=== PATIENT | female | born 1950 | race Caucasian/White ===

== ENCOUNTER 2017-07-29 06:54 | Day surgery (SDC) | payer OTHER ==
[2017-07-25 12:29] VITALS: BMI 35.0
[~2017-07-29] VITALS: Ht 160 cm; Wt 90.9 kg
[~2017-07-29 06:54] MED LIST: CLINDAMYCIN 600 MG/54 ML D5W IV SCH; DTR/5 PO; LACTATED RINGER'S 1000ML 1,000 ML IV SCH; MULT-506 PO; TOPI100T20 PO
[2017-07-29] MEDS ORDERED: FENTANYL CITRATE INJ 50 MCG/1 ML 2 ML VIAL IV PRN (07:30)
[2017-07-29] MEDS ORDERED: EpHEDrine SULFATE INJ 50 MG/ML AMP IV PRN (07:30)
[2017-07-29] MEDS ORDERED: ATROPINE SULFATE 0.1 MG/ML 5ML SYR IV PRN (07:30)
[2017-07-29] MEDS ORDERED: ONDANSETRON INJ 2 MG/ML 2 ML VIAL IV PRN ×2 (07:30→09:30)
[2017-07-29] MEDS ORDERED: HYDROmorphone INJ 1 MG/ML SYR IV PRN (07:30)
[2017-07-29 07:31] VITALS: BP 137/76; PULSE 86; TEMP 37; O2SAT 93; Ht 160 cm; Wt 90.9 kg
[2017-07-29] MEDS ORDERED: PROPOFOL IV EMULSION 10 MG/ML 20 ML VIAL IV ONE (07:39)
[2017-07-29] MEDS ORDERED: ROCURONIUM BROMIDE 10 MG/ML 5 ML VIAL IV ONE (07:39)
[2017-07-29] MEDS ORDERED: FENTANYL CITRATE INJ 50 MCG/1 ML 2 ML VIAL ONE ×2 (07:39→08:36)
[2017-07-29] MEDS ORDERED: MIDAZOLAM HCL 1 MG/ML 2ML VIAL ONE (07:39)
[2017-07-29] MEDS ORDERED: LIDOCAINE HCL 2% 2 ML VIAL (20MG/ML) ONE (07:39)
[2017-07-29] MEDS ORDERED: LIDOCAINE HCL 1% 20 ML VIAL ONE (08:09)
[2017-07-29] MEDS ORDERED: BUPIVACAINE 0.5 % 5 MG/1 ML MPF 30ML VIAL ONE (08:09)
[2017-07-29] MEDS ORDERED: BACITRACIN OINT 15 GM TUBE ONE (08:09)
[2017-07-29] MEDS ORDERED: CLINDAMYCIN IV 600 MG in DEXTROSE 5% 50ML 50 ML IV ONE (08:15)
--- NOTE | 2017-07-29 08:15 | History & Physical Bridge Note ---
H&P Re-Evaluation Bridge Note: I have examined the patient, reviewed the History & Physical and in the interval since the performance of the History & Physical I have noted the following changes of clinical significance: No changes noted
[2017-07-29] MEDS ORDERED: DEXAMETHASONE SOD INJ 4 MG/ML VIAL ONE (08:35)
[2017-07-29] MEDS ORDERED: ONDANSETRON INJ 2 MG/ML 2 ML VIAL ONE (08:35)
[2017-07-29] MEDS ORDERED: PHENYLEPHRINE 100MCG/ML 5ML SYR ONE (08:49)
[2017-07-29] MEDS ORDERED: EpHEDrine SULFATE 50MG/5ML SYR ONE (08:49)
[2017-07-29] MEDS ORDERED: SUCCINYLCHOLINE CHLORIDE 20 MG/ML 10 ML VIAL IV ONE (08:49)
[2017-07-29] MEDS ORDERED: PHENYLEPHRINE HCL INJ 10 MG/ML VIAL ONE (08:49)
--- NOTE | 2017-07-29 09:11 | [facility] Post Operative Brief Note ---
Immediate Operative Summary Operative Date Jul 29, 2017. Pre-Operative Diagnosis Ventral Hernia Post-Operative Diagnosis Ventral Hernia Procedure(s) Performed open repair ventral hernia with mesh Surgeon Dr. Torres Cook Boat Surgeon(s) Yvonne Kerr PA-C Estimated Blood Loss 5 ml Findings Consistent with Post-Op Diagnosis Fluids (cc crystalloids) 1100ml Specimens none Drains None Anesthesia Type General Complication(s) none Disposition Accompanied Pt To Recover: yes Disposition: Recovery Room / PACU
[2017-07-29] MEDS ORDERED: OXYC-57 PO (09:29)
[2017-07-29] MEDS ORDERED: MoRPHine SULFATE 4 MG/ML 1 ML CARP\\VIAL IV PRN (09:30)
[2017-07-29] MEDS ORDERED: OXYCODONE/ACETAMINOPHEN 5-325 TAB PO PRN ×2 (09:30)
[2017-07-29] MEDS ORDERED: ACETAMINOPHEN 325 MG TAB PO PRN (09:30)
[2017-07-29] MEDS ORDERED: MoRPHine SULFATE 2 MG/ML CARP IV PRN ×2 (09:30)
--- NOTE | 2017-07-29 09:34 | Discharge Instructions ---
Discharge Instructions Date of Service Jul 29, 2017. Admission Reason for Admission: Ventral Hernia Discharge Discharge Diagnosis / Problem: same Discharge Goals Goal(s): Decrease discomfort, Improve function Activity Recommendations Activity Limitations: as noted below No heavy lifting over 10 pounds for 4-6 weeks No strenuous activity until cleared by surgeon No submerging incisions underwater for 2 weeks (no bathing, swimming, or hot tubs) No driving while taking narcotic pain medication or until you are pain free . Instructions / Follow-Up Instructions / Follow-Up You may shower in 4 days, and then remove outer dressing. Sponge bath and wash hair in meantime. You have surgical christina that will be removed in surgical office Please cover daily with gauze Wear abdominal binder daily for support and compression. You may take this off at bedtime. You will be given Narcotic pain medication (Percocet) as needed for moderate to severe pain. You may take Tylenol/Ibuprofen as needed for mild pain. This medication may make you drowsy. Take as directed. Follow-up in surgical office in 1-2 weeks as scheduled , please call office at [phone] if you do not already have an appointment made. Current Hospital Diet Patient's current hospital diet: Discharge Diet Recommended Diet: Regular Diet Procedures Procedures Performed: Open Repair Ventral Hernia with Insertion of Mesh Pending Studies Studies pending at discharge: no Medical Emergencies . Who to Call and When: Medical Emergencies: If at any time you feel your situation is an emergency, please call 911 immediately. . Non-Emergent Contact Non-Emergency issues call your: Primary Care Provider, Surgeon Call Non-Emergent contact if: you have a fever, temperature is above 101, your pain is not controlled, your pain is worsening, your pain is unusual for you, wound has increased drainage, wound has increased redness, wound has increased pain . "Provider Documentation" section prepared by Yvonne Kerr. . VTE Core Measure Inpt VTE Proph given/why not?: SCD's [place] Drug Monitoring Program Search Results: patient reviewed within database, no issues identified
--- NOTE | 2017-07-29 10:11 | Anesthesiology Progress Note ---
Anesthesia Post Op Note Date & Time Jul 29, 2017 at 10:11 Vital Signs Pain Intensity: 5.0 Vital Signs Past 12 Hours Date Time Temp Pulse Resp B/P (MAP) Pulse Ox O2 Delivery O2 Flow Rate FiO2 07/29/17 09:52 92 17 96 07/29/17 09:52 86 17 07/29/17 09:51 126/85 07/29/17 09:47 95 18 97 07/29/17 09:47 83 18 07/29/17 09:46 130/86 07/29/17 09:42 99 18 07/29/17 09:42 101 18 96 07/29/17 09:41 132/94 07/29/17 09:37 102 20 97 07/29/17 09:37 98 20 07/29/17 09:36 155/89 07/29/17 09:32 113 17 07/29/17 09:32 113 17 98 07/29/17 09:31 140/102 07/29/17 09:27 114 20 134/101 97 07/29/17 09:27 114 20 07/29/17 09:27 36.8 110 19 134/107 96 Oxymask 11 07/29/17 07:31 37 86 20 137/76 (96) 93 Room Air Notes Mental Status: alert / awake / arousable, participated in evaluation Pt Amnestic to Procedure: Yes Nausea / Vomiting: adequately controlled Pain: adequately controlled Airway Patency, RR, SpO2: stable & adequate BP & HR: stable & adequate Hydration State: stable & adequate Anesthetic Complications: no major complications apparent
--- NOTE | 2017-07-29 10:20 | OPERATIVE REPORT ---
DATE OF OPERATION: 07/29/2017 PREOPERATIVE DIAGNOSIS: Ventral hernia. POSTOPERATIVE DIAGNOSIS: Ventral hernia. OPERATION: Open repair of ventral hernia with mesh. SURGEON: Lillie Torres MD. ANESTHESIA: General. TASTE TESTER: Yvonne Kerr PA-C. FINDINGS: Ventral hernia, size is 2.5 x 2.5 cm. COMPLICATIONS: None. INDICATIONS FOR THE PROCEDURE: This is a 67-year-old female who presented with symptomatic ventral hernia. The patient will be required to do ventral hernia repair, possible mesh. I did talk to the patient about the benefit and risk, alternate procedure. I indicated the risks may include but not limited such as bleeding, infection, hernia recurrence, injury to bowel, complications related to mesh. The patient understands. She signed informed consent and I answered all questions. DETAILS OF PROCEDURE: We brought the patient to the OR, put the patient in the supine position. The patient received SCD on bilateral legs to prevent DVT. Also, the patient received 600 mg of clindamycin IV for prophylactic antibiotic. The patient received general anesthesia without difficulty. The abdomen was prepped and draped in routine sterile fashion. After time out, we made a midline incision just above the umbilicus about 4 cm and then deepened through the subcutaneous layer and then we found the patient had a ventral hernia. The hernia size was about 2.5 x 2.5. We successfully completely reduced the hernia contents back to the abdominal cavity, mobilized the fascial layer and then we decided to use 6.4 x 6.4 cm mesh to repair the hernia. Then I chose #1 Ethibond and sutured the fascia to the mesh around 360 degree interruptedly and then we tied the suture. The mesh seated nicely, no tension and then I closed the subcutaneous layer by using 2-0 Vicryl interruptedly and closed skin by using staple. Then the injected the local anesthesia by using 1% lidocaine mixed with 0.5% Marcaine around the incision. We put the dressing on. The patient tolerated the procedure well. All the instrument, needle and sponge count were correct x2 at the end of case and patient transferred to recovery room in stable condition. I attest to the content of the Intraoperative Record and any orders documented therein. Any exceptions are noted below. OG
[2017-07-29 10:30] VITALS: BP 120/78; PULSE 85; TEMP 36.7; O2SAT 93
[2017-07-29 11:00] VITALS: BP 122/66; PULSE 99; O2SAT 92
[2017-07-29 11:30] VITALS: BP 126/70; PULSE 89; TEMP 36.4; O2SAT 94
== END 2017-07-29 11:40 | disposition home or self-care (01) ==
LOC: C.ACU 06:54
PROVIDERS: ATTEND Surgery
DX: K43.9 Ventral hernia without obstruction or gangrene (principal); F32.3 Major depressive disorder, single episode, severe with psychotic features; E55.9 Vitamin D deficiency, unspecified